=== PATIENT | female | born 1940 | race Caucasian/White ===

== ENCOUNTER 2019-09-26 21:42 | Emergency (ER) | payer MEDICARE, BC ==
[~2019-09-26] VITALS: Ht 152.4 cm; Wt 63.5 kg
--- NOTE | 2019-09-26 21:43 | NUR ---
PT BIB C/O "I'M COLD, SHAKING AND I HAVE PALPITATION X1 1/2HR". PT AOX4. NAD NOTED. RESP EVEN AND UNLABORED. PT ON MONITOR IN BED 3 WITH AT BEDSIDE. WILL CONTINUE TO MONITOR.
--- NOTE | 2019-09-26 21:52 | NUR ---
TECH AT BEDSIDE FOR EKG
--- NOTE | 2019-09-26 22:03 | NUR ---
BLOOD DRAWN AND GIVEN TO PHLEB
[2019-09-26 22:12] LABS: BASOPHILS # (AUTO) 0.1 /CMM (0.0-0.2); BASOPHILS % (AUTO) 1.1 % (0.0-2.0); EOSINOPHILS % (AUTO) 2.4 % (0.0-6.0); HEMATOCRIT 39 % (33-45); HEMOGLOBIN 12.8 g/dL (11.5-14.8); LYMPHOCYTES # (AUTO) 2.2 /CMM (0.8-4.8); LYMPHOCYTES % (AUTO) 25.2 % (20.0-44.0); MEAN CORPUSCULAR HGB CONC 33 g/dl (31.0-36.0); MEAN CORPUSCULAR VOLUME 91 fL (82-100); MONOCYTES # (AUTO) 0.9 /CMM (0.1-1.30); NEUTROPHILS # (AUTO) 5.2 /CMM (1.8-8.9); NEUTROPHILS % (AUTO) 60.3 % (43.0-81.0); PLATELET COUNT (AUTO) 208 /CMM (150-450); RED BLOOD CELL COUNT(AUTO) 4.32 MIL/uL (4.0-5.2); WHITE BLOOD COUNT (AUTO) 8.7 K/uL (4.3-11.0)
[2019-09-26 22:20] LABS: CALCIUM, SERUM 9.3 mg/dL (8.5-10.1); CARBON DIOXIDE 29 mmol/L (21-32); CHLORIDE 105 mmol/L (98-107); GLUCOSE 125 mg/dL (74-106); POTASSIUM 3.6 mmol/L (3.5-5.1); SODIUM SERUM 142 mmol/L (136-145); UREA NITROGEN, BLOOD 24 mg/dL (7-18)
--- NOTE | 2019-09-26 22:27 | NUR ---
RADIOLOGY AT BEDSIDE FOR XRAY
--- NOTE | 2019-09-26 22:27 | NUR ---
Missael lowry in [facility] - 09/26/19 at 2227 by JAVID BLOOD DRAWN AND GIVEN TO LAB
[2019-09-26 23:28] VITALS: BP 142/75
--- NOTE | 2019-09-27 00:17 | NUR ---
PHLEB AT BEDSIDE FOR TROPONIN REDRAW
--- NOTE | 2019-09-27 01:26 | NUR ---
IV removed. Catheter intact and site benign. Pressure and 4x4 applied to site. No bleeding noted.Patient discharged to home in stable condition. Written and verbal after care instructions given. Patient verbalizes understanding of instruction.
== END 2019-09-27 01:31 | disposition home or self-care (01) ==
LOC: ER 21:43
DX: R00.2 Palpitations (principal); R11.0 Nausea; I10 Essential (primary) hypertension; K21.9 Gastro-esophageal reflux disease without esophagitis; E03.9 Hypothyroidism, unspecified
CPT/HCPCS: 36415; 71045-TC; 80048-TC; 84484-TC; 85025-TC